=== PATIENT | male | born 1965 | race Caucasian/White ===

== ENCOUNTER 2018-11-25 11:37 | Emergency (ER) | payer OTHER ==
[2018-11-25 12:21] VITALS: BP 133/83
--- NOTE | 2018-11-25 12:57 | UC ---
Upper Extremity HPI - HPI Summary HPI Summary: 52-year-old male presents with complaints of injury to his right arm. States he was at work lifting a heavy box when he felt a "pop" in the right anterior shoulder. Reports pain when he attempted to lift a box but otherwise denies pain. States he notes a deformity to the muscle in his arm. Does note some weakness when attempting to lift without arm but has full range of motion. Denies numbness or tingling. - History of Current Complaint Chief Complaint: UCUpperExtremity Stated Complaint: W/C RIGHT ARM INJURY Time Seen by Provider: 11/25/18 12:27 Hx Obtained From: Patient Pain Intensity: 0 - Allergies/Home Medications Allergies/Adverse Reactions: Allergies Allergy/AdvReac Type Severity Reaction Status Date / Time No Known Allergies Allergy Verified 11/25/18 12:18 PMH/Surg Hx/FS Hx/Imm Hx Previously Healthy: Yes - denies significant PMH - Surgical History Surgical History: None - Family History Known Family History: Positive: Non-Contributory - Social History Occupation: Employed Full-time Lives: Alone Alcohol Use: None Substance Use Type: None Smoking Status (MU): Former Smoker Review of Systems All Other Systems Reviewed And Are Negative: Yes Constitutional: Positive: Negative Skin: Negative: Bruising Respiratory: Positive: Negative Cardiovascular: Positive: Negative Gastrointestinal: Positive: Negative Genitourinary: Positive: Negative Motor: Positive: Weakness Neurovascular: Negative: Decreased Sensation Musculoskeletal: Positive: Other: - See HPI. Negative: Decreased ROM Neurological: Positive: Negative Is Patient Immunocompromised?: No Physical Exam - Summary Physical Exam Summary: GENERAL APPEARANCE: Well developed, well nourished, alert and cooperative, and appears to be in no acute distress. CARDIAC: Normal S1 and S2. No S3, S4 or murmurs. Rhythm is regular. There is no peripheral edema, cyanosis or pallor. Extremities are warm and well perfused. Capillary refill is less than 2 seconds. Peripheral pulses intact. LUNGS: Clear to auscultation without rales, rhonchi, wheezing or diminished breath sounds. ABDOMEN: Positive bowel sounds. Soft, nondistended, nontender. No guarding or rebound. No masses or hepatosplenomegally. MUSKULOSKELETAL: ROM intact to all extremities. No joint erythema or tenderness. Normal gait. EXTREMITIES: Tenderness over the proximal right biceps tendon with chelly deformity of the biceps muscle. Flexion intact although strength diminished compared to the contralateral extremity. Circulation and sensation intact. SKIN: Skin normal color, texture and turgor with no lesions or eruptions. Triage Information Reviewed: Yes Vital Signs: Initial Vital Signs Temp 98.0 F 11/25/18 12:16 Pulse 59 11/25/18 12:16 Resp 15 11/25/18 12:16 BP 133/83 11/25/18 12:16 Pulse Ox 99 11/25/18 12:16 Vital Signs Reviewed: Yes Upper Extremity Course/Dx - Course Course Of Treatment: 52-year-old male presents with complaints of injury to his right arm. States he was at work lifting a heavy box when he felt a "pop" in the right anterior shoulder. Reports pain when he attempted to lift a box but otherwise denies pain. States he notes a deformity to the muscle in his arm. Does note some weakness when attempting to lift without arm but has full range of motion. Denies numbness or tingling. Afebrile. Vital signs stable. Patient hasn't had tenderness over the proximal right biceps tendon with chelly deformity of the biceps muscle. Flexion intact although strength diminished compared to the contralateral extremity. Circulation and sensation intact. Remainder of exam was unremarkable. Clinically the patient has a rupture of the proximal biceps tendon. Recommending conservative treatment with activity modification. He is to follow-up with orthopedic surgery in 5-7 days for further evaluation and treatment. He was prescribed a prescription for naproxen 500 mg 1 tablet every 12 hours as needed for pain. Anticipatory guidance and warning symptoms are reviewed with the patient. Verbalizes understanding and agrees with plan of care - Differential Dx/Diagnosis Differential Diagnosis/HQI/PQRI: Contusion, Fracture (Closed), Strain, Sprain Provider Diagnosis: Rupture of right proximal biceps tendon Discharge - Sign-Out/Discharge Documenting (check all that apply): Patient Departure All imaging exams completed and their final reports reviewed: No Studies - Discharge Plan Condition: Stable Disposition: HOME Prescriptions: Naproxen [Naproxen 500 mg tab] 500 mg PO BID PRN #30 tablet PRN Reason: Pain Patient Education Materials: Tendon Rupture (ED) Referrals: No Primary Care Phys,NOPCP [Primary Care Provider] - Additional Instructions: Based on your history and exam you have a rupture of the proximal biceps tendon. Rest the arm as much as possible. You should not lift anything more than 5 pounds with this arm until you have been evaluated by orthopedic surgery. Apply ice to the affected area for 15-20 minutes at least 4 times a day to help with the pain and swelling. Take naproxen 500 mg 1 tab every 12 hours as needed for pain. Follow up with orthopedic surgery in 5-7 days for further evaluation and treatment. Call for an appointment. Seek immediate medical attention if you have severe pain not managed with pain medication, you lose function of the arm, develop numbness or tingling in the arm, hand or fingers, or have any worsening of symptoms. - Billing Disposition and Condition Condition: STABLE Disposition: Home - Attestation Statements Provider Attestation: Per institutional requirements, I have reviewed the chart, however, I was not consulted specifically or made aware of this patient by the midlevel provider. I did not personally evaluate, interact with , or disposition this patient.
== END 2018-11-25 13:06 | disposition home or self-care (01) ==
LOC: UCCORT 11:37
DX: S46.211A Strain of muscle, fascia and tendon of other parts of biceps, right arm, initial encounter (principal); X50.0XXA Overexertion from strenuous movement or load, initial encounter; Y93.89 Activity, other specified; Y92.89 Other specified places as the place of occurrence of the external cause; Y99.0 Civilian activity done for income or pay; Z87.891 Personal history of nicotine dependence
CPT/HCPCS: 99201; G0463